=== PATIENT | female | born 1980 | race Caucasian/White ===

== ENCOUNTER 2016-11-23 01:47 | Emergency (ER) | payer SELFPAY | END 2016-11-23 02:03 | disposition left against medical advice (07) | LOC: MW.ED 01:47 | DX: Z53.20 Procedure and treatment not carried out because of patient's decision for unspecified reasons (principal) ==

== ENCOUNTER 2017-02-19 08:52 | Emergency (ER) | payer BC ==
[2017-02-19] MEDS ORDERED: Proparacaine 0.5% Ophth Soln 15 ML Bottle EYERT ONE (09:16)
--- NOTE | 2017-02-19 09:33 | EDM.PDOC ---
ED HPI GENERAL MEDICAL PROBLEM - General Chief Complaint: Eye Problems Stated Complaint: SOMETHING IS HER RIGHT EYE Time Seen by Provider: 02/19/17 09:12 - History of Present Illness INITIAL COMMENTS - FREE TEXT/NARRATIVE: HISTORY AND PHYSICAL: History of present illness: The patient is a healthy 36-year-old female who presents with complaints of eyelid swelling and feeling like there is something in her eye that started today after having false eyelashes placed 3 days ago. Patient says that she has had the eyelashes placed multiple times in the past has never had a problem but she had these eyelashes placed on Tuesday and started having swelling on her eyelid last evening and today when she woke up it was worse and she has pain and a foreign body sensation in her right eye. The patient is a contact lens wearer and says that she normally takes them out in the evening and cleans them put on Tuesday after having the eyelashes placed she did leave him in an sleep with them and then remove them night for cleaning. She currently does not have her contacts and has backup glasses. She says the difficulty she is having is only with the right eye and now both eyes. She has no other systemic complaints such as fever chills runny nose sore throat nausea or vomiting. She says she doesn't feel like the eye is very itchy and it was not matted it is just swollen. Review of systems: As per history of present illness and below otherwise all systems reviewed and negative. Past medical history: As per history of present illness and as reviewed below otherwise noncontributory. Surgical history: As per history of present illness and as reviewed below otherwise noncontributory. Social history: No reported history of drug or alcohol abuse. Family history: As per history of present illness and as reviewed below otherwise noncontributory. Physical exam: Gen.: Well-developed well-nourished female who is nontoxic and vital signs of been reviewed by me. She prefers to keep her right eye shut due to photophobia. HEENT: Atraumatic, normocephalic, pupils reactive, EOMs intact, there is no sinus tenderness or gross facial swelling negative for conjunctival pallor or scleral icterus, mucous membranes moist, throat clear, neck supple, nontender, trachea midline. Lungs: Clear to auscultation, breath sounds equal bilaterally, chest nontender. There is visible swelling of the right eyelid specifically at the eyelid margin and false eyelashes are seen in place. There is edema of the upper lid conjunctiva and there is some mild injection of the sclera of the eye. On fluoroscein stain a small punctate uptake is seen at approximately 8:00 it does not appear to be a foreign body. Visual acuity is as per nursing and documented below. The left eye exhibits no eyelid or eyelid margin swelling. Heart: S1S2, regular, negative for clicks, rubs, or JVD. Abdomen: Soft, nondistended, nontender. NABS Pelvis: Stable nontender. Genitourinary: Deferred. Rectal: Deferred. Extremities: Atraumatic, negative for cords or calf pain. Neurovascular unremarkable. Neuro: Awake, alert, oriented. Cranial nerves II through XII unremarkable. Cerebellum unremarkable. Motor and sensory unremarkable throughout. Exam nonfocal. Diagnostics: Visual acuity fluoroscein stain Visual acuity left eye 20/20 right eye 20/50 Therapeutics: Proparacaine for eye exam 0935: Case was discussed with our brick tester Dr. Ward; he would like the patient to use ofloxacin every 3 hours to the eye and not have the eyelashes removed. He will see the patient on Tuesday but he requested I give the patient his cell phone number to call him if things are getting worse. I've advised her not to wear her contact lenses only glasses to avoid the light and to try to avoid rubbing or irritating the area. Impression: Right eye blepharitis status post eyelashes extension placement, small corneal abrasion right eye with history of contact lens use Definitive disposition and diagnosis as appropriate pending reevaluation and review of above. Right Eye Pain Score (Numeric/FACES): 6 - Related Data Allergies Allergy/AdvReac Type Severity Reaction Status Date / Time ibuprofen Allergy Swollen Verified 02/19/17 09:06 Eyes Home Meds: Home Meds . 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: Musculoskeletal History: Reports: None Neurological History: Reports: None Psychiatric History: Reports: Depression Endocrine/Metabolic History: Reports: None Hematologic History: Reports: None Immunologic History: Reports: None Oncologic (Cancer) History: Reports: None Dermatologic History: Reports: None - Infectious Disease History Infectious Disease History: Reports: Chicken Pox - Past Surgical History Head Surgeries/Procedures: Reports: None HEENT Surgical History: Reports: Tonsillectomy GI Surgical History: Reports: Cholecystectomy Endocrine Surgical History: Reports: None Neurological Surgical History: Reports: None Musculoskeletal Surgical History: Reports: None Social & Family History - Family History Cardiac: Reports: [place] Neurological: Reports: CVA, Seizure Endocrine/Metabolic: Reports: Diabetes, Type I - Tobacco Use Smoking Status *Q: Current Every Day Smoker Years of Tobacco use: 15 Packs/Tins Daily: 0.5 - Caffeine Use Caffeine Use: Reports: Coffee, Soda Caffeine Use Comment: 6-7/day - Recreational Drug Use Recreational Drug Use: No Drug Use in Last 12 Months: No Recreational Drug Type: Reports: Marijuana/Hashish Recreational Drug Use Frequency: Not Used In Over 1 Year ED ROS GENERAL - Review of Systems Review Of Systems: ROS reveals no pertinent complaints other than HPI. ED EXAM GENERAL W FULL EYE - Physical Exam Exam: See Below (See dictation) Course - Vital Signs Last Recorded V/S: Last Vital Signs Temp 36.3 C 02/19/17 09:03 Pulse 86 02/19/17 09:03 Resp 12 02/19/17 09:03 BP 145/76 H 02/19/17 09:03 Pulse Ox 95 02/19/17 09:03 - Orders/Labs/Meds Orders: Active Orders 24 hr Category Date Time Status Communication Order [RC] STAT Care 02/19/17 09:28 Active Vaccines to be Administered [RC] PER UNIT ROUTINE Care 02/19/17 09:34 Ordered Meds: Medications Discontinued Medications Generic Name Dose Route Start Last Admin Trade Name Bean PRN Reason Stop Dose Admin Diphtheria/Tetanus/Acell Pertussis 0.5 ml 02/19/17 09:34 Adacel IM 02/19/17 09:35 .ONCE ONE Proparacaine HCl 1 ml 02/19/17 09:16 02/19/17 09:20 Proparacaine 0.5% Ophth Soln EYERT 02/19/17 09:17 2 drop ONETIME ONE Administration Departure - Departure Time of Disposition: 09:46 Disposition: Home, Self-Care 01 Condition: Fair Clinical Impression: Blepharitis of eyelid of right eye Qualifiers: Blepharitis type: unspecified type Eyelid: upper Qualified Code(s): H01.001 - Unspecified blepharitis right upper eyelid Corneal abrasion Qualifiers: Encounter type: initial encounter Laterality: right Qualified Code(s): S05.01XA - Injury of conjunctiva and corneal abrasion without foreign body, right eye, initial encounter - Discharge Information Referrals: Joseph Mccracken MD [Primary Care Provider] - Forms: ED Department Discharge Additional Instructions: The following information is given to patients seen in the emergency department who are being discharged to home. This information is to outline your options for follow-up care. We provide all patients seen in our emergency department with a follow-up referral. The need for follow-up, as well as the timing and circumstances, are variable depending upon the specifics of your emergency department visit. If you don't have a primary care physician on staff, we will provide you with a referral. We always advise you to contact your personal physician following an emergency department visit to inform them of the circumstance of the visit and for follow-up with them and/or the need for any referrals to a consulting specialist. The emergency department will also refer you to a specialist when appropriate. This referral assures that you have the opportunity for followup care with a specialist. All of these measure are taken in an effort to provide you with optimal care, which includes your followup. Under all circumstances we always encourage you to contact your private physician who remains a resource for coordinating your care. When calling for followup care, please make the office aware that this follow-up is from your recent emergency room visit. If for any reason you are refused follow-up, please contact the [facility] emergency department at and ask to speak to the emergency department charge nurse. [address] [address] Please call and schedule an appointment on Tuesday with in the ophthalmology clinic as we discussed. Please call him over the weekend if you feel like symptoms are worsening or not improving at his cell # [phone]. Use the eyedrops your current prescribed every 3 hours to the right eye and do not wear contact lenses until you are followed up. Avoid bright light. Use over- the-counter Claritin Benadryl or Ellie to help with the allergenic component. Return to ER as needed and as discussed. Leave your eyelash extensions in place until you are followed up. - My Orders Last 24 Hours: My Active Orders 02/19/17 09:28 Communication Order [RC] STAT 02/19/17 09:34 Vaccines to be Administered [RC] PER UNIT ROUTINE - Assessment/Plan Last 24 Hours: My Active Orders 02/19/17 09:28 Communication Order [RC] STAT 02/19/17 09:34 Vaccines to be Administered [RC] PER UNIT ROUTINE
[2017-02-19] MEDS ORDERED: Diphtheria,Pertussis(Acell),Tetanus Vaccine 0.5 ML Syringe IM ONE (09:34)
[2017-02-19 10:08] VITALS: BP 105/68
== END 2017-02-19 10:01 | disposition home or self-care (01) ==
LOC: MW.ED 08:52
DX: S05.01XA Injury of conjunctiva and corneal abrasion without foreign body, right eye, initial encounter (principal); H01.001 Unspecified blepharitis right upper eyelid; Z23 Encounter for immunization; X58.XXXA Exposure to other specified factors, initial encounter
CPT/HCPCS: 90471; 90715; 99283; 99283-25

== ENCOUNTER 2019-01-20 18:03 | Emergency (ER) | payer BC ==
[2019-01-20] MEDS ORDERED: Bacitracin Oint 1 GM U/D Packet TOP ONE (18:16)
--- NOTE | 2019-01-20 18:21 | EDM.PDOC ---
ED HPI GENERAL MEDICAL PROBLEM - General Chief Complaint: Laceration Stated Complaint: RT HAND INJURY Time Seen by Provider: 01/20/19 18:14 Source of Information: Reports: Patient History Limitations: Reports: No Limitations - History of Present Illness INITIAL COMMENTS - FREE TEXT/NARRATIVE: HISTORY AND PHYSICAL: History of present illness: Patient is a 38-year-old female who presents to the emergency room with complaints of a laceration to the ulnar surface of her right hand/palm. She states she is currently remodeling her bathroom and had reached behind the toilet and states "I'm not sure if the toilet bowl was broken" but resulted in a laceration. She denies any crush injury or any other injuries other extremities. Unsure last tetanus update Review of systems: As per history of present illness and below otherwise all systems reviewed and negative. Past medical history: As per history of present illness and as reviewed below otherwise noncontributory. Surgical history: As per history of present illness and as reviewed below otherwise noncontributory. Social history: See social history for further information Family history: As per history of present illness and as reviewed below otherwise noncontributory. Physical exam: General: Well developed and well nourished 38-year-old female. Alert and oriented. Nontoxic appearing and in no acute distress. HEENT: Atraumatic, normocephalic, pupils equal and reactive bilaterally, negative for conjunctival pallor or scleral icterus, mucous membranes moist, trachea midline. No drooling or trismus noted. No meningeal signs. No hot potato voice noted. Lungs: Clear to auscultation, breath sounds equal bilaterally, chest nontender. Heart: S1S2, regular rate and rhythm without overt murmur Abdomen: Soft, nondistended, nontender. Negative for masses or hepatosplenomegaly. Negative for costovertebral tenderness. Skin: 3cm laceration to the right ulnar aspect of the hand/palmar surface below the fifth digit. Otherwise skin is Intact, warm, dry. No lesions or rashes noted. Extremities: Atraumatic, moves all extremities per self without difficulty or deficits, negative for cords or calf pain. Neurovascular unremarkable. Neuro: Awake, alert, oriented. Cranial nerves II through XII unremarkable. Cerebellum unremarkable. Motor and sensory unremarkable throughout. Exam nonfocal. Notes: Patient's chart shows she had a tetanus update in 2017. Chlorahexadin and wound wash was used for cleansing and thorough irrigation.1% lidocaine was used to anesthetize the area. Usual customary procedures were followed for suture placement. 4-0 Nylon, #5 interrupted sutures are placed. Patient tolerated well. Bacitracin nonstick dressing applied. Supportive care measures were reviewed and discussed. Voices understanding and is agreeable to plan of care. Denies any further questions or concerns at this time. Diagnostics: None Therapeutics: Wound care, bacitracin dressing, 1% lidocaine Prescription: None Impression: Laceration Plan: 1. Keep the area clean and dry. Continue to monitor for signs of infection. Sutures to be removed in 7-10 days. 2. Tylenol and/or ibuprofen as needed for pain management. 3. Please follow-up with your primary care provider in the next 1-2 days. Return to the ED as needed and as discussed. Definitive disposition and diagnosis as appropriate pending reevaluation and review of above. Right Hand Pain Score (Numeric/FACES): 3 - Related Data Allergies Allergy/AdvReac Type Severity Reaction Status Date / Time ibuprofen Allergy Swollen Verified 01/20/19 18:10 Eyes Home Meds: Home Meds . 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: Musculoskeletal History: Reports: None Neurological History: Reports: None Psychiatric History: Reports: Depression Endocrine/Metabolic History: Reports: None Hematologic History: Reports: None Immunologic History: Reports: None Oncologic (Cancer) History: Reports: None Dermatologic History: Reports: None - Infectious Disease History Infectious Disease History: Reports: Chicken Pox - Past Surgical History Head Surgeries/Procedures: Reports: None HEENT Surgical History: Reports: Tonsillectomy GI Surgical History: Reports: Cholecystectomy Endocrine Surgical History: Reports: None Neurological Surgical History: Reports: None Musculoskeletal Surgical History: Reports: None Social & Family History - Family History Family Medical History: Noncontributory Cardiac: Reports: [place] Neurological: Reports: CVA, Seizure Endocrine/Metabolic: Reports: Diabetes, Type I - Tobacco Use Smoking Status *Q: Current Every Day Smoker Years of Tobacco use: 10 Packs/Tins Daily: 0.5 - Caffeine Use Caffeine Use: Reports: Coffee, Soda Caffeine Use Comment: 6-7/day - Recreational Drug Use Recreational Drug Use: No ED ROS GENERAL - Review of Systems Review Of Systems: ROS reveals no pertinent complaints other than HPI. ED EXAM, SKIN/RASH Exam: See Below (See dictation) ED SKIN PROCEDURES - Laceration/Wound Repair Right hand Appearance: Subcutaneous, Linear, Clean Distal NVT: Neuro & Vascular Intact, No Tendon Injury Anesthetic Type: Local Local Anesthesia - Lidocaine (Xylocaine): 1% Plain Local Anesthetic Volume: 4cc Skin Prep: Chlorhexidine (Hibiciens), Saline, Sterile Drape Saline Irrigation (cc's): 25 Exploration/Debridement/Repair: Wound Explored, In a Bloodless Field, No Foreign Material Found Closed with: Sutures Lac/Wound length In cm: 3 Suture Size: 4-0 # of Sutures: 5 Suture Type: Nylon, Interrupted, Simple Drain Placement: No Sterile Dressing Applied: Provider Tetanus Status Addressed: Yes Complications: No Course - Vital Signs Last Recorded V/S: Last Vital Signs Temp 96.7 F 01/20/19 18:09 Pulse 104 H 01/20/19 18:09 Resp 18 01/20/19 18:09 BP 134/98 H 01/20/19 18:09 Pulse Ox 97 01/20/19 18:09 - Orders/Labs/Meds Meds: Medications Discontinued Medications Generic Name Dose Route Start Last Admin Trade Name Bean PRN Reason Stop Dose Admin Bacitracin 1 dose 01/20/19 18:16 01/20/19 18:27 Bacitracin Oint 1 Gm TOP 01/20/19 18:17 1 dose ONETIME ONE Administration Lidocaine HCl 5 ml 01/20/19 18:16 01/20/19 18:27 Xylocaine-Mpf 1% INJECT 01/20/19 18:17 5 ml ONETIME ONE Administration Departure - Departure Time of Disposition: 18:42 Disposition: Home, Self-Care 01 Clinical Impression: Laceration - Discharge Information Instructions: Laceration Care, Adult, [id number] Referrals: Joseph Mccracken MD [Primary Care Provider] - Forms: ED Department Discharge Additional Instructions: The following information is given to patients seen in the emergency department who are being discharged to home. This information is to outline your options for follow-up care. We provide all patients seen in our emergency department with a follow-up referral. The need for follow-up, as well as the timing and circumstances, are variable depending upon the specifics of your emergency department visit. If you don't have a primary care physician on staff, we will provide you with a referral. We always advise you to contact your personal physician following an emergency department visit to inform them of the circumstance of the visit and for follow-up with them and/or the need for any referrals to a consulting specialist. The emergency department will also refer you to a specialist when appropriate. This referral assures that you have the opportunity for follow-up care with a specialist. All of these measure are taken in an effort to provide you with optimal care, which includes your follow-up. Under all circumstances we always encourage you to contact your private physician who remains a resource for coordinating your care. When calling for follow-up care, please make the office aware that this follow-up is from your recent emergency room visit. If for any reason you are refused follow-up, please contact the [facility] Emergency Department at and asked to speak to the emergency department charge nurse. [facility] [address] [place] [id number] [address] [id number] 1. Keep the area clean and dry. Continue to monitor for signs of infection. Sutures to be removed in 7-10 days. 2. Tylenol and/or ibuprofen as needed for pain management. 3. Please follow-up with your primary care provider in the next 1-2 days. Return to the ED as needed and as discussed.
[2019-01-20 19:08] VITALS: BP 135/96
== END 2019-01-20 18:51 | disposition home or self-care (01) ==
LOC: MW.ED 18:03
DX: S61.411A Laceration without foreign body of right hand, initial encounter (principal); F17.210 Nicotine dependence, cigarettes, uncomplicated; Z88.6 Allergy status to analgesic agent; W26.8XXA Contact with other sharp object(s), not elsewhere classified, initial encounter
CPT/HCPCS: 12002; 99282; J2001

== ENCOUNTER 2019-01-29 17:19 | Emergency (ER) | payer BC ==
--- NOTE | 2019-01-29 18:02 | EDM.PDOC ---
ED HPI GENERAL MEDICAL PROBLEM - General Chief Complaint: Wound Recheck Stated Complaint: STITCH COMPLAINT Time Seen by Provider: 01/29/19 17:57 Source of Information: Reports: Patient History Limitations: Reports: No Limitations - History of Present Illness INITIAL COMMENTS - FREE TEXT/NARRATIVE: History of present illness: []Patient cut her hand on the toilet and is here for suture removal. She noted pus coming out of one end of the laceration this morning and is having increased pain. She denies any fevers or difficulty moving her hand. Review of systems: As per history of present illness and below otherwise all systems reviewed and negative. Past medical history: As per history of present illness and as reviewed below otherwise noncontributory. Surgical history: As per history of present illness and as reviewed below otherwise noncontributory. Social history: No reported history of drug or alcohol abuse. Family history: As per history of present illness and as reviewed below otherwise noncontributory. Physical exam: General: Well developed, well nourished in NAD HEENT: Atraumatic, normocephalic, pupils reactive, negative for conjunctival pallor or scleral icterus, mucous membranes moist, throat clear, neck supple, nontender, trachea midline. Lungs: Clear to auscultation, breath sounds equal bilaterally, chest nontender. Heart: S1S2, regular, negative for clicks, rubs, or JVD. Abdomen: NABS, Soft, nondistended, nontender. Negative for masses or hepatosplenomegaly. Negative for costovertebral tenderness. Pelvis: Stable nontender. Genitourinary: Deferred. Rectal: Deferred. Extremities: Right hand with laceration intact there is a small droplet of purulent fluid at one end of the suture no erythematous streaks patient is afebrile, negative for cords or calf pain. Neurovascular unremarkable. Neuro: Awake, alert, oriented. Cranial nerves II through XII unremarkable. Cerebellum unremarkable. Motor and sensory unremarkable throughout. Exam nonfocal. Skin:warm and dry Diagnostics: none Therapeutics: sutures removed ED Course: stable Impression: Right hand wound infection Prescriptions: keFlex Plan: Take meds as directed, follow up with your primary care physician, return to ER if symptoms worsen or change. Definitive disposition and diagnosis as appropriate pending reevaluation and review of above. 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: Musculoskeletal History: Reports: None Neurological History: Reports: None Psychiatric History: Reports: Depression Endocrine/Metabolic History: Reports: None Hematologic History: Reports: None Immunologic History: Reports: None Oncologic (Cancer) History: Reports: None Dermatologic History: Reports: None - Infectious Disease History Infectious Disease History: Reports: Chicken Pox - Past Surgical History Head Surgeries/Procedures: Reports: None HEENT Surgical History: Reports: Tonsillectomy GI Surgical History: Reports: Cholecystectomy Endocrine Surgical History: Reports: None Neurological Surgical History: Reports: None Musculoskeletal Surgical History: Reports: None Social & Family History - Family History Family Medical History: Noncontributory Cardiac: Reports: [place] Neurological: Reports: CVA, Seizure Endocrine/Metabolic: Reports: Diabetes, Type I - Caffeine Use Caffeine Use: Reports: Coffee, Soda Caffeine Use Comment: 6-7/day Review of Systems - Review of Systems Review Of Systems: See Below ED EXAM, GENERAL - Physical Exam Exam: See Below Departure - Departure Time of Disposition: 18:02 Disposition: Home, Self-Care 01 Condition: Good Clinical Impression: Cellulitis and abscess of hand - Discharge Information *PRESCRIPTION DRUG MONITORING PROGRAM REVIEWED*: Not Applicable *COPY OF PRESCRIPTION DRUG MONITORING REPORT IN PATIENT GUILLE: Not Applicable Prescriptions: cephALEXin [Keflex] 500 mg PO Q8H #21 cap Referrals: PCP,Unknown [Primary Care Provider] -
[2019-01-29 18:05] VITALS: BP 130/82; PULSE 65
== END 2019-01-29 18:07 | disposition home or self-care (01) ==
LOC: MW.ED 17:19
DX: T81.49XA Infection following a procedure, other surgical site, initial encounter (principal); L03.113 Cellulitis of right upper limb; L02.413 Cutaneous abscess of right upper limb; Z88.6 Allergy status to analgesic agent; Z90.49 Acquired absence of other specified parts of digestive tract; Z98.890 Other specified postprocedural states
CPT/HCPCS: 99282; 99283

== ENCOUNTER 2019-12-19 07:47 | Emergency (ER) | payer BC ==
[2019-12-19] MEDS ORDERED: Acetaminophen 500 MG Tab PO ONE (08:05)
--- NOTE | 2019-12-19 08:11 | EDM.PDOC ---
ED HPI GENERAL MEDICAL PROBLEM - General Chief Complaint: Lower Extremity Injury/Pain Stated Complaint: POSSIBLE BROKEN LEFT FOOT Time Seen by Provider: 12/19/19 08:04 - History of Present Illness INITIAL COMMENTS - FREE TEXT/NARRATIVE: History of present illness: Patient presents with left foot pain after playing some soccer with her kids last night she states it was sore last night when she woke up this morning the top of her foot was very painful and she is not able to bear weight due to the discomfort. She denies any specific injury the pain is at the top of the foot radiating up into the ankle. This started last night was worse this morning weightbearing movement makes it worse being still makes it better Review of systems: As per history of present illness and below otherwise all systems reviewed and negative. Past medical history: As per history of present illness and as reviewed below otherwise noncontributory. Surgical history: As per history of present illness and as reviewed below otherwise nonco ntributory. Social history: No reported history of drug or alcohol abuse. Family history: As per history of present illness and as reviewed below otherwise noncontributory. Physical exam: HEENT: Atraumatic, normocephalic, pupils reactive, negative for conjunctival pallor or scleral icterus, mucous membranes moist, throat clear, neck supple, nontender, trachea midline. Lungs: Clear to auscultation, breath sounds equal bilaterally, chest nontender. Heart: S1S2, regular, negative for clicks, rubs, or JVD. Abdomen: Soft, nondistended, nontender. Negative for masses or hepatosplenomegaly. Negative for costovertebral tenderness. Pelvis: Stable nontender. Genitourinary: Deferred. Rectal: Deferred. Extremities: Atraumatic, negative for cords or calf pain. Neurovascular unremarkable. Left foot is swollen over the dorsal aspect of the first and second metatarsals there is good distal pulse motor and sensation. She will not bear weight due to pain Neuro: Awake, alert, oriented. Cranial nerves II through XII unremarkable. Cerebellum unremarkable. Motor and sensory unremarkable throughout. Exam nonfocal. Diagnostics: [] Therapeutics: [] Impression: [] Plan: X-ray ice Tylenol and reassess [] Definitive disposition and diagnosis as appropriate pending reevaluation and review of above. 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: Musculoskeletal History: Reports: None Neurological History: Reports: None Psychiatric History: Reports: Depression Endocrine/Metabolic History: Reports: None Hematologic History: Reports: None Immunologic History: Reports: None Oncologic (Cancer) History: Reports: None Dermatologic History: Reports: None - Infectious Disease History Infectious Disease History: Reports: None - Past Surgical History Head Surgeries/Procedures: Reports: None HEENT Surgical History: Reports: Tonsillectomy GI Surgical History: Reports: Cholecystectomy Endocrine Surgical History: Reports: None Neurological Surgical History: Reports: None Musculoskeletal Surgical History: Reports: None Social & Family History - Family History Family Medical History: Noncontributory Cardiac: Reports: MA Neurological: Reports: CVA, Seizure Endocrine/Metabolic: Reports: Diabetes, Type I - Tobacco Use Smoking Status *Q: Current Every Day Smoker Years of Tobacco use: 15 Packs/Tins Daily: 0.5 - Caffeine Use Caffeine Use: Reports: Coffee Caffeine Use Comment: 6-7/day - Recreational Drug Use Recreational Drug Use: No Review of Systems - Review of Systems Review Of Systems: See Below ED EXAM, GENERAL - Physical Exam Exam: See Below Course - Vital Signs Text/Narrative:: A 3 view left foot read interpreted by me there is minimally displaced fractures of the distal aspect of the second and third metatarsals no dislocations are appreciated. Patient be placed in a walking boot with crutches she will be given Marianna for pain follow-up with podiatry. Last Recorded V/S: Last Vital Signs Temp 35.7 C L 12/19/19 07:59 Pulse 104 H 12/19/19 07:59 Resp 16 12/19/19 07:59 BP 123/80 12/19/19 07:59 Pulse Ox - Orders/Labs/Meds Orders: Active Orders 24 hr Category Date Time Status Cooling Warming Measures [RC] ASDIRECTED Care 12/19/19 08:05 Active oxyCODONE ER [OxyCONTIN] Med 12/19/19 08:35 Once 10 mg PO ONETIME ONE DME for Discharge [COMM] Stat Oth 12/19/19 08:35 Ordered DME for Discharge [COMM] Stat Oth 12/19/19 08:35 Ordered Ice Pack [Ice Therapy] [OM.PC] Stat Ot 12/19/19 08:05 Ordered Meds: Medications Discontinued Medications Generic Name Dose Route Start Last Admin Trade Name Bean PRN Reason Stop Dose Admin Acetaminophen 1,000 mg 12/19/19 08:05 12/19/19 08:17 Tylenol Extra Strength PO 12/19/19 08:06 1,000 mg ONETIME ONE Administration Departure - Departure Time of Disposition: 08:38 Disposition: Home, Self-Care 01 Condition: Good Clinical Impression: Foot fracture, left - Discharge Information *PRESCRIPTION DRUG MONITORING PROGRAM REVIEWED*: Not Applicable *COPY OF PRESCRIPTION DRUG MONITORING REPORT IN PATIENT GUILLE: Not Applicable Prescriptions: Acetaminophen/HYDROcodone [Marianna 325-5 MG] 1 tab PO Q6H #15 tablet Instructions: Metatarsal Fracture Referrals: Joseph Mccracken MD [Primary Care Provider] - Tom Jarrett DPM [Physician] - Forms: ED Department Discharge Additional Instructions: The following information is given to patients seen in the emergency department who are being discharged to home. This information is to outline your options for follow-up care. We provide all patients seen in our emergency department with a follow-up referral. The need for follow-up, as well as the timing and circumstances, are variable depending upon the specifics of your emergency department visit. If you don't have a primary care physician on staff, we will provide you with a referral. We always advise you to contact your personal physician following an emergency department visit to inform them of the circumstance of the visit and for follow-up with them and/or the need for any referrals to a consulting specialist. The emergency department will also refer you to a specialist when appropriate. This referral assures that you have the opportunity for follow-up care with a specialist. All of these measure are taken in an effort to provide you with optimal care, which includes your follow-up. Under all circumstances we always encourage you to contact your private physician who remains a resource for coordinating your care. When calling for follow-up care, please make the office aware that this follow-up is from your recent emergency room visit. If for any reason you are refused follow-up, please contact the [facility] Emergency Department at and asked to speak to the emergency department charge nurse. Sepsis Event Note (ED) - Evaluation Sepsis Screening Result: No Definite Risk - Focused Exam Vital Signs: Vital Signs Temp Pulse Resp BP 12/19/19 07:59 35.7 C L 104 H 16 123/80 - My Orders Last 24 Hours: My Active Orders 12/19/19 08:05 Cooling Warming Measures [RC] ASDIRECTED Ice Pack [Ice Therapy] [OM.PC] Stat 12/19/19 08:35 oxyCODONE ER [OxyCONTIN] 10 mg PO ONETIME ONE DME for Discharge [COMM] Stat DME for Discharge [COMM] Stat - Assessment/Plan Last 24 Hours: My Active Orders 12/19/19 08:05 Cooling Warming Measures [RC] ASDIRECTED Ice Pack [Ice Therapy] [OM.PC] Stat 12/19/19 08:35 oxyCODONE ER [OxyCONTIN] 10 mg PO ONETIME ONE DME for Discharge [COMM] Stat DME for Discharge [COMM] Stat
--- NOTE | 2019-12-19 08:34 | CR ---
Left foot: 3 views of the left foot were obtained. Comparison: No prior foot exam. Slightly displaced fractures are identified within the distal shaft of the left 2nd and 3rd metatarsals. No additional fracture or other bony abnormality is appreciated. Impression: 1. Fractures within the left 2nd and 3rd metatarsals as noted above. 2. No additional abnormality is appreciated on left foot study. Diagnostic code #3 This report was dictated in MDT
[2019-12-19] MEDS ORDERED: oxyCODONE ER 10 MG TAB.ER PO ONE (08:35)
[2019-12-19 08:55] VITALS: BP 121/76; PULSE 95
== END 2019-12-19 08:55 | disposition home or self-care (01) ==
LOC: MW.ED 07:47
DX: S92.322A Displaced fracture of second metatarsal bone, left foot, initial encounter for closed fracture (principal); S92.332A Displaced fracture of third metatarsal bone, left foot, initial encounter for closed fracture; F17.210 Nicotine dependence, cigarettes, uncomplicated; Z88.6 Allergy status to analgesic agent; X50.1XXA Overexertion from prolonged static or awkward postures, initial encounter; Y93.66 Activity, soccer
CPT/HCPCS: 73630; 99283; A9270

== ENCOUNTER 2020-08-09 21:59 | Emergency (ER) | payer BC ==
[2020-08-09] MEDS ORDERED: Sodium Chloride 0.9% 2.5 ML Syringe FLUSH PRN (22:18)
[2020-08-09] MEDS ORDERED: Sodium Chloride 0.9% 1,000 ML IV ONE (22:18)
[2020-08-09] MEDS ORDERED: fentaNYL 50 MCG/ML SDV IVPUSH ONE (22:18)
[2020-08-09] MEDS ORDERED: Ondansetron 4 MG/2 ML SDV IVPUSH ONE (22:18)
[2020-08-09] MEDS ORDERED: Sodium Chloride 0.9% 10 ML Syringe FLUSH PRN (22:18)
[2020-08-09 22:35] LABS: BLOOD UREA NITROGEN,BUN 8 mg/dL (7.0-18.0); CARBON DIOXIDE,CO2 24.4 mmol/L (21.0-32.0); CHLORIDE,CL 103 mmol/L (98-107); GLUCOSE RANDOM 109 mg/dL (74-106); POTASSIUM,K 3.5 mmol/L (3.5-5.1); SODIUM,NA 140 mmol/L (136-145)
[2020-08-09] MEDS ORDERED: HYDROmorphone 1 MG/ML Syringe IVPUSH ONE (23:10)
--- NOTE | 2020-08-09 23:19 | CT ---
INDICATION: Acute abdominal pain, was wrestling with nephew TECHNIQUE: CT Abdomen and pelvis without i.v. contrast. Coronal and sagittal reformats were obtained. COMPARISON: None FINDINGS: Lower chest: Unremarkable. Liver: There is a hypodense lesion in the right posterior segment of the liver measuring 1.4 cm. Spleen: Unremarkable. Pancreas: Unremarkable. Gallbladder: Previous cholecystectomy noted with moderate extrahepatic biliary ductal dilatation seen. The common bile duct measures 13 mm. Kidney: Unremarkable. No kidney or ureteral stones or obstruction seen. Adrenal: Unremarkable. Bowel: Unremarkable. The appendix is normal in appearance and size. Vascular: Unremarkable. Lymph: Unremarkable. Peritoneum: Unremarkable. No pneumoperitoneum is seen. No significant ascites is noted. Pelvis: An IUD is present in the uterine cavity near the fundus with no identified complications. Mild to moderate distention of the bladder is noted. Soft tissue: Unremarkable. Bone: Unremarkable for age. IMPRESSION: 1. There is a hypodense lesion in the right posterior segment of the liver measuring 1.4 cm. Assessment outpatient liver MRI is recommended, especially if the patient has a history of prior primary malignancy or chronic liver disease. 2. No visceral injuries identify but evaluation is limited without the use of intravenous contrast. Dictated by Clayton Giles MD @ 08/09/2020 11:19:13 PM Please note that all CT scans at this facility use dose modulation, iterative reconstruction, and/or weight-based dosing when appropriate to reduce radiation dose to as low as reasonably achievable. Dictated by: Clayton Giles MD @ 08/09/2020 23:19:24 (Electronically Signed)
--- NOTE | 2020-08-09 23:43 | EDM.PDOC ---
ED HPI GENERAL MEDICAL PROBLEM - General Chief Complaint: Abdominal Pain Stated Complaint: ABDOMINAL PAIN Time Seen by Provider: 08/09/20 22:13 - History of Present Illness INITIAL COMMENTS - FREE TEXT/NARRATIVE: HISTORY AND PHYSICAL: History of present illness: This is a 39-year-old female who presents ER today secondary to severe pain to her back and abdomen that occurred when she was horse playing with her nephew. She reports that her nephew and her started wrestling when she started feeling excruciating pain to both her left and right lower abdomen as well as her back. Patient denies any recent fevers, shakes, chills, nausea, vomiting, diarrhea, dysuria, frequency, urgency, chest pain, shortness of breath. Patient reports that she has been drinking a significant amount of margaritas today and is intoxicated upon arrival to the ED per daughter. Patient is status post cholecystectomy. Patient reports that she has allergies to NSAIDs where she breaks into hives and swells up. Patient denies any dysuria, frequency, urgency. Patient has a nausea, vomiting, diarrhea. Patient denies any melena or bright red blood per rectum. Patient has hematuria. Patient denies any vaginal bleeding. Patient reports that currently she has an IUD in place. Patient reports that when she was worse around with her nephew he did not fall and land on top of her but her pain started when she twisted her body while wrestling. Review of systems: As per history of present illness and below otherwise all systems reviewed and negative. Past medical history: As per history of present illness and as reviewed below otherwise noncontributory. Surgical history: As per history of present illness and as reviewed below otherwise noncontributory. Social history: No reported history of drug or alcohol abuse. Family history: As per history of present illness and as reviewed below otherwise noncontributory. Physical exam: This patient was seen and evaluated during the 2019 SARS-CoV-2 novel coronavirus pandemic period. Community viral transmission is ongoing at time of this encounter and the emergency department is operating under pandemic response procedures. Constitutional: Patient is oriented to person, place, and time. Appears well- developed and well-nourished. No distress. HEENT: Moist mucous membranes Head: Normocephalic and atraumatic Eyes: Right eye exhibits no discharge. Left eye exhibits no discharge. No scleral icterus Neck: Normal range of motion. No tracheal deviation present. Cardiovascular: Normal rate and regular rhythm. Pulmonary: Effort normal, no respiratory distress. Abdominal: No distention Musculoskeletal: Normal range of motion Neurologic: Alert and oriented to person, place and time. Skin: [place], warm and dry. Psychiatric: Normal mood and affect. Behavior is normal. Judgment and thought content normal. Nursing note and vital signs have been reviewed Patient's ER physical exam is significant for tenderness palpation to her lower abdomen bilaterally and suprapubic region. Patient has tenderness palpation to her bilateral flanks. Patient is alert awake and orient x3. Patient's has a normal neurological exam. Patient is moving all extremities well. Patient was able to ambulate and weight-bear. Abd: Soft, nondistended, no rebound/guarding, no psoas or obturator signs, no tenderness at Mcberney's point, no Fish's sign. Pt does not present with an exam that would be consistent with an acute surgical abdomen at this time. Patient has no C-spine T-spine or L-spine tenderness to palpation. Patient has no left upper or right upper quadrant tenderness to palpation. Patient has no crepitus to palpation to the anterior chest wall. Patient is neurologically intact. Patient does not present with any signs or or symptoms that would be consistent with acute intracranial, intra-abdominal, intrathoracic, or long bone injury. All long bones have been palpated and range of motion been performed and there is no evidence of any acute pathology. Diagnostics: CBC, CMP, urinalysis all within normal limits. CT scan of the abdomen pelvis reveals no acute pathology. Therapeutics: Fentanyl 100 mcg IV, Zofran 4 mg IV Dilaudid 1 mg IV Assessment and plan: 31-year-old female who presents ER today complaining of back and abdominal pain that occurred when she twisted funny while wrestling with her nephew. Patient was drinking alcohol today and does have an elevated alcohol level of greater than 200. Patient received some moderate amount of relief from the initial fentanyl injection that received however she feels much improved after the second shot of Dilaudid. I did discuss with the patient my concerns with her markedly elevated alcohol level with giving her opiates. Patient will be discharged home with [facility] and Flexeril to assist her with her pain and discomfort. Given her alcohol intoxication have recommended that she hold off getting that filled until the morning. Patient CT scan did not reveal any significant intra-abdominal pathology. No kidney stones. Reassessment at the time of disposition demonstrates that the patient is in no acute distress. The patient has remained stable throughout the entire ED visit and is without objective evidence for acute process requiring urgent intervention or hospitalization. The patient is stable for discharge, counseling is provided as documented above, discussed symptomatic treatment and specific conditions for return. I have spoken with the patient/caregiver and discussed todays findings, in addition to providing specific details for the plan of care. Questions are answered and there is agreement with the plan. Definitive disposition and diagnosis as appropriate pending reevaluation and review of above. Lower abdomen Pain Score (Numeric/FACES): 10 - Related Data Allergies Allergy/AdvReac Type Severity Reaction Status Date / Time ibuprofen Allergy Swollen Verified 08/09/20 22:10 Eyes Home Meds: Home Meds Cyclobenzaprine [Flexeril] 10 mg PO TID PRN #20 tab 08/09/20 [Rx] FLUoxetine [PROzac] 20 mg PO DAILY 08/09/20 [History] traMADol [Ultram] 50 mg PO Q6H PRN #12 tab 08/09/20 [Rx] Past Medical History - Past Health History Medical/Surgical History: Denies Medical/Surgical History Cardiovascular History: Reports: None Respiratory History: Reports: None Genitourinary History: Reports: None [employer] History: Reports: Musculoskeletal History: Reports: None Neurological History: Reports: None Psychiatric History: Reports: Depression Endocrine/Metabolic History: Reports: None Hematologic History: Reports: None Immunologic History: Reports: None Oncologic (Cancer) History: Reports: None Dermatologic History: Reports: None - Infectious Disease History Infectious Disease History: Reports: None - Past Surgical History Head Surgeries/Procedures: Reports: None HEENT Surgical History: Reports: Tonsillectomy GI Surgical History: Reports: Cholecystectomy Endocrine Surgical History: Reports: None Neurological Surgical History: Reports: None Musculoskeletal Surgical History: Reports: None Social & Family History - Family History Family Medical History: No Pertinent Family History Cardiac: Reports: [place] Neurological: Reports: CVA, Seizure Endocrine/Metabolic: Reports: Diabetes, Type I - Tobacco Use Tobacco Use Status *Q: Current Every Day Tobacco User Years of Tobacco use: 20 Packs/Tins Daily: 0.7 - Caffeine Use Caffeine Use: Reports: Coffee, Energy Drinks Caffeine Use Comment: 6-7/day - Recreational Drug Use Recreational Drug Use: No ED ROS GENERAL - Review of Systems Review Of Systems: See Below ED EXAM, GENERAL - Physical Exam Exam: See Below Course - Vital Signs Last Recorded V/S: Last Vital Signs Temp 98.0 F 08/09/20 22:07 Pulse 113 H 08/09/20 22:07 Resp 25 H 08/09/20 22:07 BP Pulse Ox 95 08/09/20 22:07 - Orders/Labs/Meds Orders: Active Orders 24 hr Category Date Time Status CULTURE URINE [RM] Stat Lab 08/09/20 22:52 Received Sodium Chloride 0.9% [Saline Flush] Med 08/09/20 22:18 Active 10 ml FLUSH ASDIRECTED PRN Sodium Chloride 0.9% [Saline Flush] Med 08/09/20 22:18 Active 2.5 ml FLUSH ASDIRECTED PRN Saline Lock Insert [OM.PC] Stat Oth 08/09/20 22:18 Ordered Medication Orders Sodium Chloride (Sodium Chloride 0.9% 10 Ml Syringe) 10 ml FLUSH ASDIRECTED PRN PRN Reason: Keep Vein Open Last Admin: 08/09/20 22:27 Dose: 10 ml Documented by: [id number] Sodium Chloride (Sodium Chloride 0.9% 2.5 Ml Syringe) 2.5 ml FLUSH ASDIRECTED PRN PRN Reason: Keep Vein Open Last Admin: 08/09/20 22:27 Dose: 2.5 ml Documented by: [id number] Labs: Laboratory Tests 08/09/20 08/09/20 08/09/20 Range/Units 22:09 22:09 22:09 WBC 14.78 H (4.0-11.0) K/uL RBC 4.43 (4.30-5.90) M/uL Hgb 14.8 (12.0-16.0) g/dL Hct 43.4 (36.0-46.0) % MCV 98.0 (80.0-98.0) fL MCH 33.4 H (27.0-32.0) pg MCHC 34.1 (31.0-37.0) g/dL RDW Std Deviation 46.7 (28.0-62.0) fl RDW Coeff of Reva 13 (11.0-15.0) % Plt Count 292 (150-400) K/uL MPV 10.50 (7.40-12.00) fL Neut % (Auto) 48.2 (48.0-80.0) % Lymph % (Auto) 35.5 (16.0-40.0) % [place] % (Auto) 7.8 (0.0-15.0) % Eos % (Auto) 7.8 H (0.0-7.0) % Baso % (Auto) 0.7 (0.0-1.5) % Neut # (Auto) 7.1 H (1.4-5.7) K/uL Lymph # (Auto) 5.2 H (0.6-2.4) K/uL [place] # (Auto) 1.2 H (0.0-0.8) K/uL Eos # (Auto) 1.2 H (0.0-0.7) K/uL Baso # (Auto) 0.1 (0.0-0.1) K/uL Nucleated RBC % 0.0 /100WBC Nucleated RBCs # 0 K/uL Sodium 140 (136-145) mmol/L Potassium 3.5 (3.5-5.1) mmol/L Chloride 103 (98-107) mmol/L Carbon Dioxide 24.4 (21.0-32.0) mmol/L BUN 8 (7.0-18.0) mg/dL Creatinine 0.8 (0.6-1.0) mg/dL Est Cr Clr Drug Dosing 89.26 mL/min Estimated GFR (MDRD) > 60.0 ml/min Glucose 109 H (74-106) mg/dL Calcium 9.0 (8.5-10.1) mg/dL Total Bilirubin 0.2 (0.2-1.0) mg/dL AST 33 (15-37) IU/L ALT 46 (14-63) IU/L Alkaline Phosphatase 101 (46-116) U/L Total Protein 8.2 (6.4-8.2) g/dL Albumin 4.0 (3.4-5.0) g/dL Globulin 4.2 H (2.6-4.0) g/dL Albumin/Globulin Ratio 1.0 (0.9-1.6) Urine Color Urine Appearance Urine pH (5.0-8.0) Ur Specific [place] (1.001-1.035) Urine Protein (NEGATIVE) mg/dL Urine Glucose (UA) (NEGATIVE) mg/dL Urine Ketones (NEGATIVE) mg/dL Urine Occult Blood (NEGATIVE) Urine Nitrite (NEGATIVE) Urine Bilirubin (NEGATIVE) Urine Urobilinogen (<2.0) EU/dL Ur Leukocyte Esterase (NEGATIVE) Urine RBC (0-2/HPF) Urine WBC (0-5/HPF) Ur Epithelial Cells (NONE-FEW) Urine Bacteria (NEGATIVE) Urine HCG, Qual (NEGATIVE) Ethyl Alcohol 237 mg/dL 08/09/20 08/09/20 Range/Units 22:52 22:52 WBC (4.0-11.0) K/uL RBC (4.30-5.90) M/uL Hgb (12.0-16.0) g/dL Hct (36.0-46.0) % MCV (80.0-98.0) fL MCH (27.0-32.0) pg MCHC (31.0-37.0) g/dL RDW Std Deviation (28.0-62.0) fl RDW Coeff of Reva (11.0-15.0) % Plt Count (150-400) K/uL MPV (7.40-12.00) fL Neut % (Auto) (48.0-80.0) % Lymph % (Auto) (16.0-40.0) % [place] % (Auto) (0.0-15.0) % Eos % (Auto) (0.0-7.0) % Baso % (Auto) (0.0-1.5) % Neut # (Auto) (1.4-5.7) K/uL Lymph # (Auto) (0.6-2.4) K/uL [place] # (Auto) (0.0-0.8) K/uL Eos # (Auto) (0.0-0.7) K/uL Baso # (Auto) (0.0-0.1) K/uL Nucleated RBC % /100WBC Nucleated RBCs # K/uL Sodium (136-145) mmol/L Potassium (3.5-5.1) mmol/L Chloride (98-107) mmol/L Carbon Dioxide (21.0-32.0) mmol/L BUN (7.0-18.0) mg/dL Creatinine (0.6-1.0) mg/dL Est Cr Clr Drug Dosing mL/min Estimated GFR (MDRD) ml/min Glucose (74-106) mg/dL Calcium (8.5-10.1) mg/dL Total Bilirubin (0.2-1.0) mg/dL AST (15-37) IU/L ALT (14-63) IU/L Alkaline Phosphatase (46-116) U/L Total Protein (6.4-8.2) g/dL Albumin (3.4-5.0) g/dL Globulin (2.6-4.0) g/dL Albumin/Globulin Ratio (0.9-1.6) Urine Color YELLOW Urine Appearance SLT CLOUDY Urine pH 5.5 (5.0-8.0) Ur Specific [place] <= 1.005 (1.001-1.035) Urine Protein NEGATIVE (NEGATIVE) mg/dL Urine Glucose (UA) NEGATIVE (NEGATIVE) mg/dL Urine Ketones NEGATIVE (NEGATIVE) mg/dL Urine Occult Blood SMALL H (NEGATIVE) Urine Nitrite NEGATIVE (NEGATIVE) Urine Bilirubin NEGATIVE (NEGATIVE) Urine Urobilinogen 0.2 (<2.0) EU/dL Ur Leukocyte Esterase TRACE H (NEGATIVE) Urine RBC 0-2 (0-2/HPF) Urine WBC 0-2 (0-5/HPF) Ur Epithelial Cells FEW (NONE-FEW) Urine Bacteria FEW (NEGATIVE) Urine HCG, Qual NEGATIVE (NEGATIVE) Ethyl Alcohol mg/dL Meds: Medications Generic Name Dose Route Start Last Admin Trade Name Freq PRN Reason Stop Dose Admin Sodium Chloride 10 ml 08/09/20 22:18 08/09/20 22:27 Sodium Chloride 0.9% 10 Ml Syringe FLUSH 10 ml ASDIRECTED PRN Administration Keep Vein Open Sodium Chloride 2.5 ml 08/09/20 22:18 08/09/20 22:27 Sodium Chloride 0.9% 2.5 Ml Syringe FLUSH 2.5 ml ASDIRECTED PRN Administration Keep Vein Open Discontinued Medications Generic Name Dose Route Start Last Admin Trade Name Freq PRN Reason Stop Dose Admin Fentanyl 100 mcg 08/09/20 22:18 08/09/20 22:27 Fentanyl 50 Mcg/Ml Sdv IVPUSH 08/09/20 22:19 100 mcg ONETIME ONE Administration Hydromorphone HCl 1 mg 08/09/20 23:10 08/09/20 23:18 Hydromorphone 1 Mg/Ml Syringe IVPUSH 08/09/20 23:11 1 mg ONETIME ONE Administration Sodium Chloride 1,000 mls @ 999 mls/hr 08/09/20 22:18 08/09/20 22:26 Normal Saline IV 08/09/20 23:18 999 mls/hr .Bolus ONE Administration Ondansetron HCl 4 mg 08/09/20 22:18 08/09/20 22:27 Ondansetron 4 Mg/2 Ml Sdv IVPUSH 08/09/20 22:19 4 mg ONETIME ONE Administration Departure - Departure Time of Disposition: 23:41 Disposition: Home, Self-Care 01 Condition: Good Clinical Impression: Musculoskeletal pain - Discharge Information Instructions: Musculoskeletal Pain Referrals: Joseph Mccracken MD [Primary Care Provider] - Additional Instructions: You were seen and evaluated in ER today secondary to pain that occurred while you are wrestling with your nephew. The pain that you are experiencing is most likely related to a torn muscle or stretched tendons and ligaments. Your blood tests as well as your CT scan of your abdomen pelvis did not show any acute abnormalities to explain the pain that you are having. There were no fractures or any evidence of any injury to your internal organs. You have received 2 doses of strong narcotic pain medicines here in the ED. You will be discharged home with a prescription for Ultram as well as Flexeril to take. When you go home, please apply ice to the area for the next 48 hours and then he can switch over to heat after that. Please make an appointment to see your family doctor in the next 1 to 2 days to be reevaluated. The following information is given to patients seen in the emergency department who are being discharged to home. This information is to outline your options for follow-up care. We provide all patients seen in our emergency department with a follow-up referral. The need for follow-up, as well as the timing and circumstances, are variable depending upon the specifics of your emergency department visit. If you don't have a primary care physician on staff, we will provide you with a referral. We always advise you to contact your personal physician following an emergency department visit to inform them of the circumstance of the visit and for follow-up with them and/or the need for any referrals to a consulting specialist. The emergency department will also refer you to a specialist when appropriate. This referral assures that you have the opportunity for follow-up care with a specialist. All of these measure are taken in an effort to provide you with optimal care, which includes your follow-up. Under all circumstances we always encourage you to contact your private physician who remains a resource for coordinating your care. When calling for follow-up care, please make the office aware that this follow-up is from your recent emergency room visit. If for any reason you are refused follow-up, please contact the [facility] Emergency Department at and asked to speak to the emergency department charge nurse. [facility] [address] [place] [id number] [address] Sepsis Event Note (ED) - Evaluation Sepsis Screening Result: Possible Sepsis Risk - Focused Exam Vital Signs: Vital Signs Temp Pulse Resp Pulse Ox 08/09/20 22:07 98.0 F 113 H 25 H 95 - My Orders Last 24 Hours: My Active Orders 08/09/20 22:18 Sodium Chloride 0.9% [Saline Flush] 10 ml FLUSH ASDIRECTED PRN Sodium Chloride 0.9% [Saline Flush] 2.5 ml FLUSH ASDIRECTED PRN Saline Lock Insert [OM.PC] Stat 08/09/20 22:52 CULTURE URINE [RM] Stat - Assessment/Plan Last 24 Hours: My Active Orders 08/09/20 22:18 Sodium Chloride 0.9% [Saline Flush] 10 ml FLUSH ASDIRECTED PRN Sodium Chloride 0.9% [Saline Flush] 2.5 ml FLUSH ASDIRECTED PRN Saline Lock Insert [OM.PC] Stat 08/09/20 22:52 CULTURE URINE [RM] Stat
[2020-08-10 00:04] VITALS: BP 99/62; PULSE 78
== END 2020-08-10 00:01 | disposition home or self-care (01) ==
LOC: MW.ED 21:59
DX: M54.9 Dorsalgia, unspecified (principal); R10.32 Left lower quadrant pain; R10.31 Right lower quadrant pain; Z72.0 Tobacco use; Z90.49 Acquired absence of other specified parts of digestive tract; Z88.6 Allergy status to analgesic agent
CPT/HCPCS: 36415; 74176; 80053; 80307; 81001; 81025; 85025; 87086; 96374; 96375; 99284; J1170; J2405; J3010; J7030

== ENCOUNTER 2023-06-20 16:32 | Emergency (ER) | payer BC ==
[2023-06-20] MEDS: Ibuprofen 600 MG Tab PO ONE (19:13)
[2023-06-20 19:16] VITALS: BP 129/72; PULSE 62
== END 2023-06-20 19:16 | disposition home or self-care (01) ==
LOC: MW.ED 16:32
DX: M25.521 Pain in right elbow (principal); M54.50 Low back pain, unspecified; M54.6 Pain in thoracic spine; Z88.5 Allergy status to narcotic agent; W10.8XXA Fall (on) (from) other stairs and steps, initial encounter
CPT/HCPCS: 71045; 71045-26; 72070; 72070-26; 72100; 72100-26; 73080-26-RT; 73080-RT; 73090-26-RT; 73090-RT; 99281; 99283

== ENCOUNTER 2024-02-02 19:00 | Emergency (ER) | payer BC ==
[2024-02-02 19:43] LABS: APPEARANCE,URINE CLEAR; BILIRUBIN,URINE NEGATIVE (NEGATIVE); COLOR,URINE YELLOW; GLUCOSE,URINE NEGATIVE (NEGATIVE); KETONES,URINE NEGATIVE (NEGATIVE); LEUKOCYTE ESTERASE,URINE NEGATIVE (NEGATIVE); NITRITE,URINE NEGATIVE (NEGATIVE); OCCULT BLOOD,URINE NEGATIVE (NEGATIVE); PH,URINE 6.5 (5.0-8.0); PROTEIN,URINE NEGATIVE (NEGATIVE); UROBILINOGEN,URINE 0.2 EU/dL (<2.0)
[2024-02-02] MEDS: Acetaminophen 500 MG Tab PO ONE (20:52)
[2024-02-02] MEDS: Dexamethasone 4 MG Tab PO ONE (20:52)
[2024-02-02] MEDS: Lidocaine 4% 1 each Patch TOP ONE (20:54)
[2024-02-02 23:28] VITALS: BP 131/72; PULSE 58
== END 2024-02-02 23:22 | disposition home or self-care (01) ==
LOC: MW.ED 19:00
DX: M54.50 Low back pain, unspecified (principal); Z90.49 Acquired absence of other specified parts of digestive tract; Z79.899 Other long term (current) drug therapy; Z88.8 Allergy status to other drugs, medicaments and biological substances
CPT/HCPCS: 72128; 72131; 81003; 81025; 99284; A9270; J8540; 99283

== ENCOUNTER 2024-09-01 11:05 | Emergency (ER) | payer BC ==
[2024-09-01 11:45] VITALS: BP 134/89; PULSE 94
[2024-09-01] MEDS: Ibuprofen 800 MG Tab PO ONE (12:01)
== END 2024-09-01 13:45 | disposition left against medical advice (07) ==
LOC: MW.ED 11:05
DX: S09.90XA Unspecified injury of head, initial encounter (principal); M79.672 Pain in left foot; Z75.3 Unavailability and inaccessibility of health-care facilities; Z79.899 Other long term (current) drug therapy; Z90.49 Acquired absence of other specified parts of digestive tract; Y04.2XXA Assault by strike against or bumped into by another person, initial encounter
CPT/HCPCS: 73630; 99284; A9270; 99282